=== PATIENT | female | born 1950 | race Caucasian/White ===

== ENCOUNTER 2017-03-11 12:20 | Day surgery (SDC) | payer MEDICARE ==
[~2017-03-11] VITALS: Ht 170.2 cm; Wt 81.7 kg
[~2017-03-11 12:20] MED LIST: 0.9% Sodium Chloride 1,000 ML IV SCH; ACET-2605 PO; ASCO-294 PO; GELA650C3 PO; HYDR25TA4 PO; IBUP200C PO; LOSA50TA37 PO; MULT-1018 PO; PANT20T PO; RNT300T PO; Sodium Chloride LOK Flush 10 mL Syringe IV PRN; fentaNYL-PF 50 mCg/mL 2 mL Inj IVPUSH PRN
[2017-03-11] MEDS ORDERED: OMEG-38 PO (13:01)
[2017-03-11 13:15] VITALS: PULSE 69; O2SAT 98
[2017-03-11 13:16] VITALS: BP 166/88; PULSE 68
[2017-03-11 14:37] VITALS: BP 168/80; PULSE 61; RESP 16; O2SAT 97
[2017-03-11 14:47] VITALS: BP 164/80; PULSE 54; RESP 16; O2SAT 99
[2017-03-11 14:57] VITALS: BP 175/65; PULSE 54; RESP 16; O2SAT 100
--- NOTE | 2017-03-11 15:09 | ENDO ---
[address] [address] ENDOSCOPY PROCEDURE PATIENT: BRANT MANCILLA : 1950 MR#: [id number] ADMIT: 03/11/2017 JOB ID: [id number] DATE: 03/11/2017 PROCEDURE: Esophagogastroduodenoscopy. INDICATIONS: Nausea, vomiting. Patient's ASA classification is II. Mallampati score is II. MEDICATIONS: Versed 7 mg, fentanyl 100 mcg. INSTRUMENT USED: GIF-H190. PROCEDURE DETAILS: After informed consent was obtained, the patient was brought to the GI suite, where she was placed on oxygen via nasal cannula and monitored with continuous pulse oximeter, telemetry, and blood pressure monitoring. A time-out was performed. Then, she was placed in the left lateral decubitus position. A bite block was placed. EGD scope was inserted through the bite block and advanced to the proximal gastric body where we encountered a large amount of liquid. Approximately 1 L of liquid was suctioned, and following that there was semi-solid food debris which we were unable to clear despite irrigation and suctioning. We then were able to visualize the distal gastric body and then able to advance the scope to the antrum where we encountered a large ulcer measuring approximately 2 cm and deforming the pylorus. We were unable to advance the scope into the duodenal bulb. At this point, biopsies were taken of the ulcer. Retroflexion was performed which revealed poor views secondary to semi-solid debris and fluid in the fundus. The scope was then withdrawn. Procedure was completed. IMPRESSION: Antral ulcer involving the pylorus, causing gastric outlet obstruction. RECOMMENDATIONS: 1. CT abdomen with IV contrast. 2. Surgical consultation. 3. Clear liquid diet. 4. Omeprazole 40 mg p.o. b.i.d. COMPLICATIONS: None. ESTIMATED BLOOD LOSS: Less than 5 mL.
--- NOTE | 2017-03-15 15:15 | PATH ---
SURGICAL PATHOLOGY Attending Physician:Terrence Malloy CASE STATUS: Signed Out PATIENT NAME: BRANT MANCILLA PID: [id number] : 1950 DATE COLLECTED:03/11/2017 00:00 SPECIMEN: Gastric, Biopsy CLINICAL HISTORY: 1). ANTRAL ULCER BIOPSY, TEST FOR H.PYLORI FINAL DIAGNOSIS: 1.GASTRIC ANTRAL ULCER, BIOPSY: GASTRIC ANTRUM WITH CHRONIC ACTIVE GASTRITIS, MUCOSAL ULCERATION, AND INTESTINAL METAPLASIA. Negative for Helicobacter organisms. No evidence of dysplasia or malignancy. ICD10 K29.70 GROSS DESCRIPTION: The specimen is received in formalin, labeled with the patient's name, sublabeled as antral ulcer, and consists of multiple fragments of mullen-white, glistening, semi-translucent tissue (0.5 x 0.3 x 0.1 cm in aggregate. Section code: (A) tissue. Specimen entirely submitted. ([id number]) MICRO DESCRIPTION: 1. The lamina propria of the gastric antrum is expanded by numerous acute and chronic inflammatory cells. An immunostain for Helicobacter organisms is done because of the acute inflammation and is negative. This test was developed and its performance characteristics determined by [facility]. It has not been cleared or approved by the U. S. Food and Drug Administration. The FDA has determined that such clearance or approval is not necessary. This test is used for clinical purposes. It should not be regarded as investigational or for research. ICD-9 CODES: CPT CODES: 1: 19507, 59181 Electronically Signed Out Tex Camacho MD [facility] Pathology [facility] [address], [place] [address] Technical component performed at [facility], [address], [place], [address]
== END 2017-03-11 23:59 | disposition home or self-care (01) ==
LOC: END 12:20
PROVIDERS: ATTEND Internal Medicine Gastroenterology
DX: K25.9 Gastric ulcer, unspecified as acute or chronic, without hemorrhage or perforation (principal); K31.1 Adult hypertrophic pyloric stenosis; K29.50 Unspecified chronic gastritis without bleeding; R11.2 Nausea with vomiting, unspecified; R10.13 Epigastric pain; I10 Essential (primary) hypertension; R63.4 Abnormal weight loss; Z68.29 Body mass index [BMI] 29.0-29.9, adult
CPT/HCPCS: 43239; 88305; 88342; 99153; G0500; J2250; J3010; J7030

== ENCOUNTER 2017-04-26 10:29 | Inpatient (IN) | payer MEDICARE ==
[~2017-04-26] VITALS: Ht 170.2 cm; Wt 79.6 kg
[2017-04-26] MEDS: Lactated Ringer's 1,000 ML IV SCH ×6 (05:00→21:37)
[~2017-04-26 10:29] MED LIST changes: -0.9% Sodium Chloride 1,000 ML IV SCH; +Cefotetan 2,000 mg/100 mL D5W IV ONE; +Cefotetan Inj 2,000 MG in IV Premix 1 EACH IV ONE; -GELA650C3 PO; +GELA650C4 PO; -IBUP200C PO; -RNT300T PO; -Sodium Chloride LOK Flush 10 mL Syringe IV PRN; +TRAM50TA2 PO; -fentaNYL-PF 50 mCg/mL 2 mL Inj IVPUSH PRN
[2017-04-26 11:02] VITALS: BP 142/76; PULSE 86; RESP 16; O2SAT 97
[2017-04-26 13:05] LABS: BASOPHILS % (AUTO) 0.5 % (0-3); EOSINOPHILS % (AUTO) 1.3 % (0-5); MONOCYTES % (AUTO) 5.4 % (4-12); Mean Corpuscular Hemoglobin 30.3 pg (27.0-35.0); Mean Corpuscular Volume 91.5 fL (81-100); NEUTROPHILS % (AUTO) 74.3 % (40-74); Platelet Count 171 bil/L (150-400)
[2017-04-26] MEDS ORDERED: Atropine 1 mg/mL Inj IVPUSH PRN (14:15)
[2017-04-26] MEDS ORDERED: fentaNYL-PF 50 mCg/mL 2 mL Inj IVPUSH PRN ×2 (14:15→14:30)
[2017-04-26] MEDS ORDERED: Ondansetron 2 mg/mL 2 mL Inj IVPUSH PRN ×2 (14:15→14:30)
[2017-04-26] MEDS ORDERED: EPHEDrine Sulfate 50 mg/mL Inj IV PRN (14:15)
[2017-04-26] MEDS ORDERED: fentaNYL 2 mCg/mL-Bupiv 0.125% 100 ML in IV Premix 1 EACH EPIDURAL SCH (14:15)
[2017-04-26] MEDS ORDERED: fentaNYL 2 mCg/mL-Bupivicaine 0.125% 100 mL Premix EPIDURAL ONE (14:27)
[2017-04-26] MEDS ORDERED: Lactated Ringer's 500 ML IV PRN (14:28)
[2017-04-26] MEDS ORDERED: MetoCLOpramide 5 mg/mL 2 mL Inj IVPUSH PRN (14:30)
[2017-04-26] MEDS ORDERED: Labetalol 5 mg/mL 4 mL Inj IV PRN (14:30)
[2017-04-26] MEDS ORDERED: EPHEDrine Sulfate 50 mg/mL Inj IVPUSH PRN (14:30)
[2017-04-26] MEDS ORDERED: HYDROmorphone 1 mg/mL Inj IVPUSH PRN (14:30)
[2017-04-26] MEDS ORDERED: Atropine 0.4 mg/mL Inj IVPUSH PRN (14:30)
[2017-04-26] MEDS ORDERED: Phenylephrine 10,000 mCg/mL Inj IVPUSH PRN (14:30)
--- NOTE | 2017-04-26 15:07 | PCM.HPANE ---
Patient Data Surgeon Admitting Provider: Attending Provider:Hever Inman MD Primary Care Physician:David Calloway MD Other Provider:Ole Escoto Anesthesia Reason for Visit Gastric Outlet Obstruction Ht/WT & BMI Height (Feet): 5 Height (Inches): 7.00 Weight (Kilograms): 82.8 Body Mass Index 28.00 Allergies Coded Allergies: lisinopril (Verified Adverse Reaction, Intermediate, Cough, 04/21/17) cough Past Anesthesia History Anesthesia History: Denies:: Abnormal Airway, Anesthesia Reactions, Difficult Intubation, Fam Anesthesia Reaction, Fam Malignant Hypertherm, Malignant Hyperthermia Diabetes History Hx Diabetes?: No MRSA MRSA: No Medications Hypertension Medication: Yes (Losartan) Home Meds Incl Beta Ria: No Reported Medications Tramadol 50 Mg Omtlnc59 Mg PO Q4H PRN For Pain Ref 0 04/21/17 Acetaminophen/Diphenhydramine (Tylenol Pm Ex-Strength Caplet)500 Mg-25 Mg Tablet1 Each PO 04/21/17 Ascorbate Calcium (Vitamin C)500 Mg Sikntz011 Mg PO DAILY 03/10/[address] (Protonix)20 Mg Pjpfwn06 Mg PO BID Ref 0 03/10/17 Multivitamin (Multi Vitamin Daily)1 Each Tablet1 Each PO DAILY 30 Days Ref 0 03/10/17 Hydrochlorothiazide 25 Mg Fhgsxg53 Mg PO DAILY 30 Days Ref 0 03/10/17 Gelatin 650 Mg Vfgrphf551 Mg PO DAILY 03/10/17 Losartan Potassium 50 Mg Ztaaaz59 Mg PO DAILY 06/18/14 Discontinued Reported Medications Kyle-3/Dha/Epa/Fish Oil (Fish Oil 1,000 mg Softgel)1 Each Capsule1 Each PO DAILY 03/11/17 Ibuprofen 200 Mg Kclxgjn217 Mg PO QID PRN For Pain Ref 0 03/10/17 Last Time Dose Received meds held today. Pt. states leading up to the surgery she was only taking HCTZ and losartan as Rx meds History History of ENT Problems?: Yes HEENT History: Positive for:: Cataracts (early) Denies:: Abnormal Airway Difficult Intubation Dysphagia Glaucoma Hearing Problem Sinus Problem TMJ Denture Type: None Teeth Condition: Within Normal Limits Hx of Heart Problems?: Yes Cardiovascular History: Positive for:: Heart Murmur (Diastolic murmur) Hypertension Denies:: Abdominal Aortic Aneurism Atrial Fibrillation Cardiac Surgery Chest Pain Congestive Heart Failure Coronary Artery Disease Edema Irregular Heartbeat Pacemaker Peripheral Vascular Rheumatic Fever Thrombophlebitis Valvular Heart Disease Other History/Comments No CP; greater than 4 mets Hx of Respiratory Problem?: No Respiratory History: Positive for:: Pneumonia (1964) Denies:: Asthma COPD Chest Surgery Cough Dyspnea Emphysema Hemoptysis Pulmonary Embolism Tuberculosis Use of C-PAP Machine Use of Inhalers / NEBS Hx Neurologic Problems?: No Neurological History: Denies:: Alzheimer's Disease CVA Dementia Dizziness Headaches Parkinson's Disease Seizures TIA Hx of GI Problems?: Yes (gastric outlet obstruction) Hx of Problems?: No Female Hx: Positive for:: Problems with Breasts? (benign lump lt breast) Denies:: Currently Skin History: Denies:: History Skin Disorders? Pressure Ulcers Hx Musculoskeletal Problems?: No Musculoskeletal History: Positive for:: Joint Replacement (R KNEE, lower back) Osteoarthritis Denies:: Back Injury Degenerative Joint Fibromyalgia Musculoskeletal Trauma Myasthenia Gravis Rheumatoid Arthritis Systemic Lupus Hx of Psycho/Social Problems?: No Psycho Social History: Denies:: Anxiety Hx Depression Hx Surgeries?: Yes (R TOTAL KNEE, T&A, R FOOT) Hx Any Other Health Problems?: Yes Other History: Positive for:: Hospitalization (2007 knee surgery) Denies:: Cancer Endocrine Disease Thyroid Disease History Blood Transfusions: Positive for:: Accept Blood Products? Denies:: Blood Transfusions Hx Diabetes: No Hx Alcohol Use: NoHx Substance Use: No Smoking Status: Never Smoker Stop/Bang S-Snoring: Do You Snore Loudly: No T-Tired: feel tired, fatigued: No O-Obsered: Observed not breath: No P-Blood Pressure: treated: Yes B- Body Mass Index > 35 kg/m2: No A- Age over 50: Yes N- Neck Large Circumference: No G- Gender Male: No HARSHIL Total Score: 2 Risk Assessment Category Category 1A: Patient has history of documented sleep apnea, and HAS NOT received any narcotic, sedative or anesthesia administration during this stay. Category 1B: Patient has history of documented sleep apnea, and HAS received any narcotic , sedative or anesthesia administration during this stay Category 2: Patient has SUSPECTED Obstructive Sleep Apnea, and HAS received any narcotic , sedative or anesthesia administration during this stay. Category 3: Patient has SUSPECTED Obstructive Sleep Apnea and HAS NOT received narcotic, sedative or anesthesia administration during this stay. Category 4: Outpatient in Procedural Areas with known sleep apnea or who screen positive for High Risk via the STOP/BANG questionnaire. Exam Exam Vital Signs Vital Signs Date Time Temp Pulse Resp B/P Pulse Ox O2 Delivery O2 Flow Rate FiO2 04/26/17 11:02 36.2 86 16 142/76 97 Room Air General Appearance: Alert, Oriented X3 HEENT/AIRWAY: MP 1, Neck Movement (FROM) Lungs: Clear to Auscultation, Clear to Percussion Heart: Exam Unremarkable, Regular Rate/Rhythm Meds/Labs/Diagnostics Admission Meds Current Medications Lactated Ringer's (Lr) 1,000 ml @ 120 mls/hr Q8H20M IV Last administered on t 05:32; Start 04/26/17 at 05:00; Stop 04/26/17 at 13:19 Plan Impression Patient chart reviewed, patient interviewed and anesthestic plan with risks, benefits, and alternatives discussed, and informed consent obtained. ASA Physical Status: ASA2 Mod Systemic Disease Anesthetic Plan: GA, Epidural (for post-op pain control) Bene/Risks/Altern/Consents: Yes HP Complete Prior to Induction: Yes Other I met pt. prior to TEP placement and consented her for GA. Dr. Inman requested a thoracic epidural for post-op pain control. Dr. Villatoro was the float and consented the patient to a TEP and placed it in the pre-op area. Davis Sharpe MD Apr 26, 2017 12:50
[2017-04-26] MEDS: Sodium Chloride LOK Flush 10 mL Syringe IVFLUSH SCH (16:30)
[2017-04-26 17:17] LABS: APPEARANCE,URINE CLEAR (CLEAR,HAZY); COLOR,URINE STRAW (YELLOW); OCCULT BLOOD,URINE NEGATIVE (NEGATIVE); UROBILINOGEN,URINE NORMAL (NORMAL)
[2017-04-26] MEDS ORDERED: Cefotetan Inj 2,000 MG in IV Premix 1 EACH IV ONE (19:15)
[2017-04-26] MEDS ORDERED: Insulin Human REGular-Omnicell 100 Unit/mL ONE (21:44)
[2017-04-26 23:20] LABS: Mean Corpuscular Hemoglobin 30.3 pg (27.0-35.0); Mean Corpuscular Volume 91.5 fL (81-100)
[2017-04-27] VITALS (24 sets, daily range): BP systolic 100–136; BP diastolic 49–74; PULSE 68–101; RESP 16–22; O2SAT 93–100
[2017-04-27] MEDS ORDERED: Cefotetan Inj 2,000 MG in IV Premix 1 EACH IV ONE (01:20)
[2017-04-27] MEDS ORDERED: Fluconazole Inj 400 MG in IV Premix 1 EACH IV ONE (01:22)
[2017-04-27] MEDS ORDERED: MetoCLOpramide 5 mg/mL 2 mL Inj IVPUSH PRN (02:35)
[2017-04-27] MEDS ORDERED: Ondansetron 2 mg/mL 2 mL Inj IVPUSH PRN (02:35)
--- NOTE | 2017-04-27 02:52 | PCM.SURGPO ---
Immediate Operative Note Date of Surgery: Apr 27, 2017 Pre Operative Diagnosis Gastric Outlet Obstruction Post Operative Diagnosis Gastric Outlet & Duodenal obstruction from chronic ulcer disease Procedure Distal Gastrectomy with Gastroduodenostomy (Bilroth I reconstruction) Common bileduct cannulation and closure of choledochotomy Omental flap Surgeon and Parts Counter Specialist Surgeon: Hever Inman MD Assistants: Mitzy Donahue MD; Brijesh Rodrigues, PAC, BRANDO Glass, Eric Hill MS3 Findings Gastric outlet & Duodenul obstruction from chronic perforated ulceration Complications There were no periprocedural complications identified. Surgical Specimen Removed: Yes Specimen sent to Pathology: Yes Anesthetic Administered: GA Grafts, Implants: None Output, Estimated Blood Loss: 50 Blood Admin during surgery: No Attending Statement Manager Drug listed was medically necessary for the successful completion of the operation Hever Inman MD Apr 27, 2017 02:52
--- NOTE | 2017-04-27 03:01 | PCM.ANEP1 ---
Post Anesthesia PACU Phase 1 Assessment Date of Service: Apr 27, 2017 Vital Signs Vital Signs Date Time Temp Pulse Resp B/P Pulse Ox O2 Delivery O2 Flow Rate FiO2 04/27/17 02:55 92 16 100/63 96 Room Air 04/27/17 02:50 101 20 117/58 98 Room Air 04/27/17 02:45 37.7 93 16 129/65 96 Room Air Anesthetic Administered: GA, Epidural Level of Alertness: Awake, talking KAPOOR's with Equal Strength: Yes Pain: Yes Pain Scale Score: 6 Nausea or Vomiting: No CV Function & Hydration Stable: Yes Airway Device: Oxygen Delivery: Room Air Lungs: Clear to Percussion Dermatome Level: T8 (Costal Margin) Summary Prolonged case lasting > 12 hours. Patient hemodynamically stable throughout with good ventilation. Intra-operative labs were unremarkable. Decision with surgeon to proceed with extubation and post-operative care in PCC. Patient with pain localized to MARI drain site on right lower abdomen, appears to not be covered by epidural. Not endorsing pain at incision. PACU Phase 2 Assessment Complications: No Follow up Care: Yes (daily post-operative epidural follow-up) Patient Instructions Provided: N/A Jonathan Guzman MD Apr 27, 2017 03:01
[2017-04-27] MEDS ORDERED: fentaNYL-PF 50 mCg/mL 2 mL Inj ONE (04:16)
--- NOTE | 2017-04-27 04:24 | OP ---
[address] [address] OPERATIVE REPORT PATIENT: IRISH DE LA CRUZ : 1950 MR#: [id number] ADMIT: 04/26/2017 JOB ID: [id number] DATE OF SURGERY: 04/26/2017 and 04/27/2017 PREOPERATIVE DIAGNOSIS(ES): Gastric outlet obstruction. POSTOPERATIVE DIAGNOSIS(ES): Gastric and duodenal obstruction from chronically perforated ulcers. PROCEDURE PERFORMED: 1. Distal gastrectomy with gastroduodenostomy (Billroth I reconstruction). 2. Common bile duct cannulation with closure of choledochotomy 3. Omental flap. 4. Excisional biopsy of a retropancreatic lymph node 5. Primary repair of umbilical hernia 6. Intraoperative esophagogastroduodenoscopy by Dr. Boyd. SURGEON: Hever Inman MD CLAIM REP: 1. Mitzy Donahue MD 2. Brijesh Rodrigues PA-C 3. Rian Berg PA-C 4. Eric Hill MS3 ESTIMATED BLOOD LOSS: 50 mL. COMPLICATIONS: None. CONDITION OF THE PATIENT: Stable. INDICATIONS: Irish De La Cruz is a 67-year-old lady who started developing epigastric discomfort after eating big meals over a year ago. She also has been throwing up undigested food after a few hours. She initially tried some Omeprazole and it seemed to help, but not after the first few months. She had an upper GI and was sent for consultation with Gastroenterology. Dr. Boyd performed an upper endoscopy. He saw an ulcer in the antrum that he biopsied, but he was not able to get through the pylorus. The patient then had a CT scan and we noted her to have an absent gallbladder with no evidence of cholestasis. There are relatively prominent bile ducts, but normal liver function tests. Based on the imaging, I was not certain if we had an obstruction at the pylorus or in the duodenum. So, we discussed distal gastrectomy with reconstruction or the potential for having to deal with a duodenal obstruction depending on intraoperative findings. After discussing the risks, benefits and alternatives, the patient is here today to have the operation. PROCEDURE DETAILS: The patient was placed in a supine position after having an epidural catheter placed. Then, she had general anesthesia induced and a Katz catheter and NG tube were placed. The abdomen was prepped and draped in the usual sterile fashion. Surgical time-out was undertaken using safety checklist and all were in agreement. I began by making an upper midline incision extending from the xiphoid down to the umbilicus. I entered the abdomen safely and then took down the falciform ligament and placed a large wound protector. I then used a Bookwalter retractor for exposure and identified the obviously dilated stomach. I was immediately impressed by the hard inflammation at the level of the pylorus. So, we mobilized the right colon and kocherized the duodenum. I noticed a lymph node behind the pancreas near the third portion of the duodenum was enlarged and removed it, carefully dissecting it off the pancreas and sent it for frozen section. While we continued to expose the duodenum, it appeared to be initially that the only area of the problem was near the pylorus. At that point, I had Dr. Boyd come in and do an endoscopy. He was able to go past the pylorus after my mobilization, but after getting into the duodenal bulb, he felt that there was an extremely small opening to go any further. After repeated tries, he could not get into the second portion of the duodenum. Eventually, we were able to briefly enter the second portion of the duodenum with an endoscope, but that did not last. At this point, based on the endoscopic appearance and our intraoperative findings suggestive of scarring and stricture right at the pylorus, I decided to proceed with a distal gastrectomy with reconstruction. I then divided the right gastroepiploic vessels and right gastric vessels and encircled the distal stomach circumferentially by taking down the adhesions of the stomach to the pancreas. I encountered dense scarring off the superior aspect of the duodenal bulb to the hilar structures of the liver. We actually unroofed a chronic contained peroration on the posterio-superior aspect of the duodenal bulb. I tried to get on to the duodenum distal to this area of inflammation to be able to mobilize it, but this part of the operation was extremely challenging given the intense scarring. We went through tedious dissection this junction of the first & second parts of the duodenum from the paripancreatic adipose issue. After attempting to mobilize this ulcerated first portion of the duodenum from the hilum unsuccessfully, we eventually ended up mobilizing the pylorus and the part of the duodenal bulb proximal to this area of scarring separately. We lifted that off of the area of inflammation. I then focused my attention on the rest of the duodenum, which was again extremely stuck to the pancreas and the structures posteriorly going to the liver. I identified the common bile duct and, as I was mobilizing the duodenum further, I eventually decided to cannulate the common bile duct with a feeding tube to help me identify the ampulla. Once I did that, I made sure I had enough duodenum mobilized to be able to perform an anastomosis without impinging on the ampulla. At that point, I left the bile duct and ampulla cannulated and went ahead and divided the stomach proximally with a 60/ 5.5mm TA stapler. I oversewed the superior aspect of the staple line and then performed a two-layer, hand-sewn gastroduodenostomy, that is Billroth I reconstruction, between the lower aspect of the stomach and the duodenum. I continued to check to make sure I had not impinged upon the ampulla or the bile duct by periodically moving the feeding tube. At the end of this anastomosis, I removed the feeding tube from the choledochotomy and tied down the horizontal mattress 6-0 PDS suture I placed around the choledochotomy with a good seal. After that, I mobilized some omentum off the transverse colon and created a flap and anchored it in the right upper quadrant covering the gastroduodenostomy. We then placed a #19 MARI drain going through the right lateral abdomen to lay in the right upper quadrant. After making sure the instrument counts were correct, we thoroughly irrigated the abdomen and suctioned all fluid. We ensured good hemostasis and closed the fascia with running 0 PDS suture. We repaired an umbilical hernia with the fascial closure and reapproximated the skin, again after irrigation, with 4-0 Monocryl. Steri-Strips and sterile dressing were applied. The patient was recovered from anesthesia and was taken to the recovery room in stable condition. EXPLANATION FOR MODIFIER 22: Because of the intense inflammation from the chronically perforated ulcer down to the hilar structures of the liver and the pancreas, the operative time more than doubled, prompting us to request higher reimbursement. JUAN
[2017-04-27] MEDS: Lactated Ringer's 1,000 ML IV SCH (04:48)
[2017-04-27 07:19] LABS: BASOPHILS % (AUTO) 0.1 % (0-3); EOSINOPHILS % (AUTO) 0.1 % (0-5); MONOCYTES % (AUTO) 6.8 % (4-12); Mean Corpuscular Hemoglobin 30.5 pg (27.0-35.0); Mean Corpuscular Volume 91.8 fL (81-100); NEUTROPHILS % (AUTO) 86.2 % (40-74); Platelet Count 176 bil/L (150-400)
--- NOTE | 2017-04-27 07:43 | NUR ---
Admit Note pt arrived to [facility] around 03:51 from PACU. pt is A&Ox3, drowsy but easily arousable to voice. pt incision site dressing is CDI, no direct observation. MARI drain has observable sero-sang fluid. NG tube to continuous suction per MD orders. SCDs on. Katz draining to gravity, ale in color. IVF infusing, site is patent. family was in room when pt arrived and left to home soon after. pt belongings at bedside. pt informed of her ability to use PCEA, button placed in her hand. call light placed within reach. hourly rounding in effect.
[2017-04-27] MEDS: Pantoprazole 4 mg/mL 10 mL Inj IVPUSH SCH ×2 (08:11→18:44)
[2017-04-27] MEDS: fentaNYL 2 mCg/mL-Bupiv 0.125% 100 ML in IV Premix 1 EACH EPIDURAL SCH ×2 (08:29→16:55)
[2017-04-27] MEDS: Sodium Chloride LOK Flush 10 mL Syringe IVFLUSH SCH ×3 (08:30→16:56)
[2017-04-27] MEDS ORDERED: Fluconazole Inj 400 MG in IV Premix 1 EACH IV SCH (08:30)
--- NOTE | 2017-04-27 09:18 | NUR ---
Social Work-initial assessment: Data:See initial assessment. Pt is a 67 y/o female who was admitted on 04/27/17 for gastric outlet obstruction per H&P. Pt's insurance is [facility] an PCP is David Calloway Md. EMR Reviewed. SW met with pt at bedside, SW role explained. Pt is alert and oriented x3. Pt resides at home alone where she remains independent with ADLS. Pt drives and does not use any DME. Pt has no HH or SNF history. Pt has no correction care insurance or VA benefits. SW discussed DPOA/ advanced directive, pt confirms this has been completed, SW encouraged a copy to be brought in. Pt has a supportive friend Rian [phone] who will provide transport home.SW provided pt with discharge planning checklist and encouraged pt to call with any questions, Phone number placed on white board. Pt currently has an NG Tube in place. SW to follow for needs. Assessment:pt who is independent at baseline. Plan:Anticipate pt to discharge home when medically stable. SW to follow for needs. LORA Tobin Addendum: 04/27/17 at 0921 by DAVY AKBAR Amended: Links added.
--- NOTE | 2017-04-27 09:56 | DRSVH ---
PROCEDURE: X-RAY ABDOMEN, ONE VIEW ([id number]) INDICATIONS: 67 year-old female with nasogastric tube placement. TECHNIQUE: One view of the abdomen acquired. COMPARISON: None. FINDINGS: Surgical changes and devices: Esophagogastric tube is present, with tip in the gastric body. Scattere d mid abdominal surgical clips are present. Bowel: Bowel gas pattern is normal. Soft tissues: No suspicious abdominal calcifications. Visualized solid organ contours appear normal in size. Bones: No suspicious bony lesions. There is lumbar spine disc degeneration. IMPRESSION: Tip of esophagogastric tube is in expected position. Dictated by: Guillermo Ruvalcaba M.D. on 04/27/2017 at 9:54 Approved by: Guillermo Ruvalcaba M.D. on 04/27/2017 at 9:55
[2017-04-27] MEDS: Acetaminophen IV 1,000 MG in IV Premix 1 EACH IV SCH ×3 (10:09→21:44)
--- NOTE | 2017-04-27 10:45 | NUR ---
PCAE PCAE rate changed by Anesthesiologist to 10 mL/hr continuous from 8 mL/Hr.
[2017-04-27] MEDS: Cefotetan Inj 2,000 MG in IV Premix 1 EACH IV SCH (12:12)
--- NOTE | 2017-04-27 13:42 | PROG NOTE ---
[address] [address] PROGRESS NOTE PATIENT: BRANT MANCILLA : 1950 MR#: [id number] ADMIT: 04/27/2017 JOB ID: [id number] DATE: 04/27/2017 The patient presents post gastrectomy. She was seen at 10 a.m., 8 hours after surgery ended. The patient is awake and alert in bed with some pain. Easily able to move her legs. Catheter site was intact. The patient has not yet been out of bed appropriately per discussion with Dr. Inman. The patient complained that there was perhaps too much pain and to evaluate the function of the epidural a 6 mL 0.25% bupivacaine bolus was administered. The patient had good result in pain relief from this. The epidural infusion rate was changed from 8 to 10 mL. The patient is happy, relaxed, smiling in bed. She will be ambulated perhaps later this afternoon.
[2017-04-27] MEDS ORDERED: 0.9% Sodium Chloride 250 ML ONE (15:21)
[2017-04-27] MEDS: D5 0.45% NaCl + KCl 20 mEq/L 1,000 ML IV SCH (16:54)
[2017-04-27] MEDS: Fluconazole Inj 200 MG in IV Premix 1 EACH IV SCH (22:19)
--- NOTE | 2017-04-27 23:22 | PCM.PNSURG ---
Subjective Date of Service: Apr 28, 2017 Visit Information: Gastric Outlet Obstruction s/p Distal Gastrectomy with Gastroduodenostomy Post-Op Day # 0 Date of Admission: Apr 27, 2017 at 04:15 Hospital Day # 2 Subjective: Pain improved once epidural rate increased Objective Vital Sign- Last 8 Hours Date Time Temp Pulse Resp B/P Pulse Ox O2 Delivery O2 Flow Rate FiO2 04/27/17 21:49 18 96 04/27/17 21:49 Supplement Oxygen 04/27/17 20:54 36.2 68 18 128/73 96 Nasal Cannula 2.00 04/27/17 18:00 18 100 04/27/17 16:00 18 100 04/27/17 15:40 76 100 Nasal Cannula 2.00 04/27/17 15:30 Supplement Oxygen Intake and Output- Last 8 Hour 04/27/17 Cumulative From/Thru 07:00 04/21/17 12:10 - 04/27/17 06:30 Intake Total 438 ml 2588 ml Output Total 210 ml 1055 ml Balance 228 ml 1533 ml Intake Oral 0 ml 0 ml IV Total 438 ml 2588 ml Output Urine Total 150 ml 900 ml Gastric Drainage Total 0 ml 0 ml Drainage Total 10 ml 55 ml Estimated Blood Loss 50 ml 100 ml # Bowel Movements 0 0 Abdomen: Soft, Other (MARI serosanguinous, Dressing dry) Result Diagram: 04/27/1771104/27/17711 Diagnostics: NG in he body of the stomach Assessment & Plan Impression Doing well Problems: Plan Continue NPO, NG o suction, MARI to bulb Epidural for pain control Continue IV protonix, anibiotics Ambulate Incentive Spirometry Will get upper GI with gastrograffin prior to initiiating diet Hever Inman MD Apr 27, 2017 23:21
[2017-04-28] VITALS (16 sets, daily range): BP systolic 133–148; BP diastolic 64–82; PULSE 72–87; RESP 14–19; O2SAT 96–99
[2017-04-28] MEDS: fentaNYL 2 mCg/mL-Bupiv 0.125% 100 ML in IV Premix 1 EACH EPIDURAL SCH ×5 (00:04→23:10)
[2017-04-28] MEDS: Cefotetan Inj 2,000 MG in IV Premix 1 EACH IV SCH ×2 (00:36→12:27)
[2017-04-28] MEDS: Acetaminophen IV 1,000 MG in IV Premix 1 EACH IV SCH ×4 (02:30→23:18)
[2017-04-28] MEDS: fentaNYL-PF 50 mCg/mL 2 mL Inj IVPUSH PRN ×3 (03:15→14:53)
[2017-04-28] MEDS: D5 0.45% NaCl + KCl 20 mEq/L 1,000 ML IV SCH ×3 (03:34→22:51)
[2017-04-28 07:13] LABS: BASOPHILS % (AUTO) 0.1 % (0-3); EOSINOPHILS % (AUTO) 0 % (0-5); MONOCYTES % (AUTO) 6.9 % (4-12); Mean Corpuscular Hemoglobin 30.9 pg (27.0-35.0); Mean Corpuscular Volume 93.5 fL (81-100); NEUTROPHILS % (AUTO) 86.1 % (40-74); Platelet Count 154 bil/L (150-400)
--- NOTE | 2017-04-28 08:27 | NUR ---
NUTRITION ASSESSMENT: ASSESS:67 YO female admitted with gastric and duodenal obstruction from chronically perforated ulcers; status post distal gastrectomy with gastroduodenostomy (Billroth I reconstruction), common bile duct cannulation with closure of choledochotomy, omental flap, excisional biopsy of a retropancreatic lymph node, primary repair of umbilical hernia, intraoperative esophagogastroduodenoscopy, per SCOAP protocol. Pt. remains NPO, pending upper GI with gastrograffin prior to initiating diet. MARI drain output 40 mL yesterday. PMHx:Diastolic murmur, HTN, gastric outlet obstruction. DIET:NPO x 1 D. LABS: Reviewed. Glu 119, Alb 3.2, Amylase 10. MEDICATIONS: Reviewed. NUTRITION FOCUSED PHYSICAL ASSESSMENT: GI symptoms / stool: No stool reported.Italo: 13. Skin Integrity: No issues reported. ANTHROPOMETRICS: Current Wt: 82.2 kgBMI: 28.0 kg/m2. IBW: 61.4 kg (134.0% IBW) ESTIMATED NEEDS (GI SURGERY): Calories: 2055 - 2466 kcal (25 - 30 kcal / kg BW) Protein: 99 - 123 g protein (1.2 - 1.5 g / kg BW) NUTRITION DIAGNOSIS: 1) Increased nutrient needs related to complex GI surgery, as evidenced by MD request for additional reimbursement. 2) Inadequate oral intake related to inability to consume sufficient energy, as evidenced by ongoing NPO status, pending gastrograffin study. INTERVENTION: 1) Once diet advanced to full liquids, will add Impact Advanced Recovery supplement to all trays. MONITOR/EVALUATE: Diet advance / tolerance, PO intake, labs, GI/nutrition status. Follow up per high nutrition risk guidelines.
--- NOTE | 2017-04-28 09:05 | PROG NOTE ---
[address] [address] PROGRESS NOTE PATIENT: BRANT MANCILLA : 1950 MR#: [id number] ADMIT: 04/27/2017 JOB ID: [id number] DATE: 04/28/2017 This patient was consulted in her floor bed in a semi-lithotomy position at 8:30 a.m. on April 28, 2017. This is postop day two following a gastrectomy with Billroth anastomosis. The patient was consulted with the surgeon at the bedside so conference was conveniently undertaken related to patient ambulation and his postop surgical progress goals. My current plan is that the patient will have a Gastrografin analysis of the anastomosis to determine patency and to rule out potential leak from the anastomosis prior to advancing oral intake. The patient is otherwise meeting her postoperative goals with plan to discontinue the Katz today and attempt ambulation under the care of physical therapy. The patient's pain needs were assessed, demonstrating that the patient's pain was reasonably controlled with a baseline of 4/10. The patient acknowledges improvement with the bolus function of the epidural pump, but has required the occasional fentanyl IV dosing for breakthrough pain, particularly with coughing or positional changes. Discussion was undertaken with the patient describing expected outcome from thoracic epidural post gastrectomy and that 4/10 baseline pain seems a reasonable expectation of the epidural at this point. The patient requests improved analgesia with a bolus dose. The pump was reviewed, found to be a bolus dose of 2 mL delivered three times per hour. This volume was increased to 4 mL three times per hour. Currently the pump settings allow for 10 mL per hour as basal volume with 4 mL boluses every 15 minutes up to three per hour as described. The bolus volume was delivered following readjustment of this pump and the patient described adequate analgesia associated with this volume dosing and was generally satisfied with the epidural therapy. It was emphasized that we are accessible throughout the day and evening should the patient have questions or concerns or need further adjustment of the epidural therapy and the patient voiced understanding in that regard. Questions were answered following discussion and the patient was left resting comfortably in her hospital bed. The site was examined and found to be clean and dry and that the dressing remain intact.
[2017-04-28] MEDS: Pantoprazole 4 mg/mL 10 mL Inj IVPUSH SCH ×2 (09:38→17:13)
--- NOTE | 2017-04-28 11:15 | NUR ---
Transfer to [facility] Report called to Amelia Liu RN In [facility]. Drain and Katz patent. PT denies SOB, reports continual abd/R flank pain at 3-12/27. NG Tube to cont low suction.
--- NOTE | 2017-04-28 11:30 | NUR ---
Arrival to [facility] Pt transferred from [facility] to [facility] at 1120. MARI bulb to suction, casanova patent and draining to gravity, NG tube to low continuous suction. Midline incision with steri-strips is CDI with distal aspect reinforced with gauze known to have old drainage on it. Pain being maintain at 3 or4/10 with Epidural of Fent/Bup at continuous rate of 10mls/hr, 4ml bolus q 20minutes; Epidural site is slightly puffy with some blood in tape, anesthesiologist had recently assessed and adjusted epidural per [facility] RN and patient. Full sensation noted in BLE, SCD's in place and PPP. Pt is on 2L NC and has CPOx.
--- NOTE | 2017-04-28 15:01 | NUR ---
Evaluation completed. Please go to "Notes" then click on "Assessments and Notes" (bottom left corner of screen). Then select appropriate discipline tab on top of screen.
--- NOTE | 2017-04-28 17:00 | DRSVH ---
PROCEDURE: X-RAY UPPER GI WITH GASTROGRAPHIN ([id number]) INDICATIONS: Distal Gastrectomy with Gastroduodenostomy COMPARISON: None. FINDINGS: This patient has had 2 days ago a Billroth I surgery. This test is to evaluate for persist ent edema versus beginning gastric flow into the duodenum. Through the patient's NG tube approximatel y 120 cc of Gastrografin were introduced into the stomach. The patient was placed in a semiupright po sition on the tilt table and rolled to her right side. Although there is a minimal amount of gastric peristalsis no emptying into the duodenum is identified. The patient was taken back to her room and placed in a semisitting position for the next 1.5 hours. A portable film was then obtained. No emptying of contrast into small bowel is identified at this poin t. The patient's nurse was then contacted and will gastric suction was initiated to aspirate the Gastrog rafin from the stomach. IMPRESSION: No emptying from the stomach occurs at this point just 2 days post placement of Billroth I surgical anastomosis. Dictated by: Davis Arias M.D. on 04/28/2017 at 16:56 Approved by: Davis Arias M.D. on 04/28/2017 at 16:59
--- NOTE | 2017-04-28 17:41 | PCM.PNSURG ---
Subjective Date of Service: Apr 28, 2017 Visit Information: Gastric Outlet Obstruction s/p Distal Gastrectomy with Gastroduodenostomy Post-Op Day # 1 Date of Admission: Apr 27, 2017 at 04:15 Hospital Day # 3 Subjective: No Nausea. Minimal NG output Objective Vital Sign- Last 8 Hours Date Time Temp Pulse Resp B/P Pulse Ox O2 Delivery O2 Flow Rate FiO2 04/28/17 16:34 37.7 77 19 133/82 96 Room Air 04/28/17 11:46 37.7 72 19 148/75 96 Room Air 04/28/17 10:29 17 97 Intake and Output- Last 8 Hour 04/28/17 Cumulative From/Thru 07:00 04/21/17 12:10 - 04/28/17 06:46 Intake Total 1500 ml 4088 ml Output Total 915 ml 2550 ml Balance 585 ml 1538 ml Intake Oral 0 ml 0 ml IV Total 1500 ml 4088 ml Output Urine Total 900 ml 2350 ml Gastric Drainage Total 0 ml Drainage Total 15 ml 100 ml Estimated Blood Loss 100 ml # Bowel Movements 0 Result Diagram: 04/28/17 0633 04/28/17 0633 Diagnostics: UGI revealed no emptying of the stomach Assessment & Plan Impression Doing well Problems: Plan Continue NPO, NG o suction, MARI to bulb Epidural for pain control Continue IV protonix, anibiotics Ambulate Incentive Spirometry Repeat AXR in Hever Benavidez MD Apr 28, 2017 17:41
[2017-04-28] MEDS: Fluconazole Inj 200 MG in IV Premix 1 EACH IV SCH (23:21)
[2017-04-28] MEDS ORDERED: 0.9% Sodium Chloride 100 ML ONE (23:24)
[2017-04-29] VITALS (11 sets, daily range): BP systolic 138–172; BP diastolic 62–81; PULSE 79–86; RESP 14–19; O2SAT 96–100
[2017-04-29] MEDS: Cefotetan Inj 2,000 MG in IV Premix 1 EACH IV SCH (01:04)
--- NOTE | 2017-04-29 04:13 | NUR ---
Pain Pt reports pain 2-4/10. Continuous infusion epidural of fen/bup infusing at 10ml/hr with 4ml bolus every 20 minutes. Epidural site with slight puffiness and old blood noted in tape- per A.m. RN, anesthesiologist had manipulated earlier and is aware. Pt has full sensation to all extremities, SCD's in place and PP+. Katz cath to gravity draining ale urine. NG tube to low continuous suction. MARI srain to Rt side of abdomen with very minor amount of sero-sang drainage. Care continues
[2017-04-29] MEDS: Acetaminophen IV 1,000 MG in IV Premix 1 EACH IV SCH ×3 (05:45→17:35)
[2017-04-29] MEDS: fentaNYL 2 mCg/mL-Bupiv 0.125% 100 ML in IV Premix 1 EACH EPIDURAL SCH ×2 (05:45→11:12)
[2017-04-29] MEDS ORDERED: Sodium Chloride LOK Flush 10 mL Syringe IVFLUSH PRN ×2 (06:50)
[2017-04-29] MEDS ORDERED: TPN Per Pharmacist XX ONE (06:50)
[2017-04-29 06:58] LABS: BASOPHILS % (AUTO) 0.2 % (0-3); EOSINOPHILS % (AUTO) 0.5 % (0-5); MONOCYTES % (AUTO) 6.3 % (4-12); Mean Corpuscular Hemoglobin 30.5 pg (27.0-35.0); Mean Corpuscular Volume 93.7 fL (81-100); NEUTROPHILS % (AUTO) 85.7 % (40-74); Platelet Count 138 bil/L (150-400)
--- NOTE | 2017-04-29 09:16 | NUR ---
NUTRITION FOLLOW-UP: ASSESS: 67 YO female admitted with gastric and duodenal obstruction from chronically perforated ulcers; status post distal gastrectomy with gastroduodenostomy (Billroth I reconstruction). She continues to have NGT in place. Pt has been NPO x3 days. TPN has been ordered this am. Wt has been stable during hospital stay. PMHx: Diastolic murmur, HTN, gastric outlet obstruction. DIET: NPO x 3 D. LABS: Reviewed. Collar Fuser .44, glu 112, alb 3.1 MEDICATIONS: Reviewed. GI symptoms / stool: 600ml output 8/10 via NGT, 0 BM Skin Integrity: No issues reported. ANTHROPOMETRICS: Current Wt: 82 kg BMI: 28.3 kg/m2, admit wt 82.8kg IBW: 61.4 kg ESTIMATED NEEDS (GI SURGERY): Calories: 3380-9941 kcal (25 - 30 kcal / kg BW) Protein: 100-125 g protein (1.2 - 1.5 g / kg BW) Fluids: ~2050ml/day (25ml/kg) NUTRITION DIAGNOSIS: 1) Increased nutrient needs related to increased needs for healing as evidence by GI surgery and need for TPN-PERSISTS 2) Inadequate oral intake related to inability to consume sufficient energy, as evidenced by ongoing NPO status-PERSISTS INTERVENTION: 1) TPN to start today. Pharmacy is aware. Recommend start TPN at 180g Dex, 65g AA and 25g lipids to provide 1122kcal and 65g pro (~50% estimated needs). Recommend check Mg and phos 8/12. 2) If TPN tolerated, recommend increase TPN towards goal of 355g Dex, 125g AA and 45g lipids to provide 2157kcal and 125g pro (100% estimated needs). 3) Recommend advance diet when medically appropriate. Will adjust TPN based on PO intake. MONITOR/EVALUATE: TPN start/jake, labs, wt, Diet advance / tolerance, GI/nutrition status. Follow up per high nutrition risk guidelines.
[2017-04-29] MEDS: Pantoprazole 4 mg/mL 10 mL Inj IVPUSH SCH ×2 (09:22→17:25)
--- NOTE | 2017-04-29 10:35 | PCM.PNSURG ---
Subjective Date of Service: Apr 29, 2017 Visit Information: Gastric Outlet Obstruction s/p Distal Gastrectomy with Gastroduodenostomy Post-Op Day # 2 Date of Admission: Apr 27, 2017 at 04:15 Hospital Day # 4 Subjective: Feeling better everyday Objective Vital Sign- Last 8 Hours Date Time Temp Pulse Resp B/P Pulse Ox O2 Delivery O2 Flow Rate FiO2 04/29/17 10:04 36.5 86 19 142/62 96 Room Air 04/29/17 04:55 37.1 80 17 160/81 97 Room Air 04/29/17 03:20 16 99 Intake and Output- Last 8 Hour 04/29/17 Cumulative From/Thru 07:00 04/21/17 12:10 - 04/29/17 06:47 Intake Total 1531 ml 6701 ml Output Total 1502 ml 6162 ml Balance 29 ml 539 ml Intake Oral 0 ml 100 ml IV Total 1531 ml 6601 ml Output Urine Total 1300 ml 5150 ml Gastric Drainage Total 200 ml 800 ml Drainage Total 2 ml 112 ml Estimated Blood Loss 100 ml # Bowel Movements 0 0 Abdomen: Soft, Other (Incision C/D/I) Result Diagram: 04/29/17 0640 04/29/17 0640 Assessment & Plan Impression Doing well, Some delayed gastric emptying Problems: Plan Continue NPO, MARI to bulb Epidural for pain control Continue IV protonix DCed Gianna GODFREY Abx Ambulate Incentive Spirometry PICC, TPN Will Repeat UGI in a few days based on progress Hever Inman MD Apr 29, 2017 10:34
--- NOTE | 2017-04-29 10:51 | PCM.PHAPRO ---
Progress PARENTERAL NUTRITION ORDERS 1 29-Apr-17 Standard Hang Time: 2100 Substrates Total kcal: 1122 AMINO ACIDS 65 g DEXTROSE 180 g Total Volume (mL): 1750 LIPIDS 25 g Sterile Water for Injection mL To Infuse Over (hrs): 24 Total Volume 1750 mL At at a rate of (mL/hr): 73 Additives Sodium Chloride 70 mEq "typical" daily requirements Sodium Acetate 10 mEq Sodium 50-120mEq Potassium Chloride 0 mEq Potassium 60-120mEq Potassium Phosphate 40 mEq Phosphate 20-40mEq Calcium Gluconate mEq Magnesium 8-32mEq Magnesium Sulfate 4 mEq Calcium 9-22mEq Acetate* 80-120mEq Chloride* 80-120mEq Regular Insulin 0 units *Depending on acid-base status Famotidine 0 mg Multivitamins 1 std dose Insulin Regimen Trace Elements 1 std dose none Thiamine 100 mg Regular Low Intensity Subcut Folic Acid 1 mg Regular Medium Intensity Subcut Ascorbic Acid mg Regular High Intensity Subcut Regular Insulin Infusion Other: Special Instructions: To be infused via central line only. For delay or inturruption of TPN contact the pharmacist for alternative replacement solution. Signature Date: Irish De La Cruz [address] [facility] Eric Connelly Pharm.D Apr 29, 2017 10:51
[2017-04-29] MEDS: D5 0.45% NaCl + KCl 20 mEq/L 1,000 ML IV SCH ×2 (11:12→21:33)
--- NOTE | 2017-04-29 13:54 | NUR ---
to PICC suite for PICC placement
--- NOTE | 2017-04-29 14:26 | DRSVH ---
PROCEDURE: X-RAY ABDOMEN, ONE VIEW ([id number]) INDICATIONS: f/u UGI TECHNIQUE: One view of the abdomen acquired. COMPARISON: [facility], CR, XR UPPER GI GASTROGRAFIN, 04/28/2017, 13:46. [facility], CR, XR ABD AP 1VW, 04/27/2017, 8:31. FINDINGS: Surgical changes and devices: Nasogastric tube redemonstrated projecting over the gastric fundus. Bowel: Bowel gas pattern is normal. The free intraperitoneal gas present underlying the right hemid iaphragm similar to prior examination in this patient who is status post recent Billroth l. Soft tissues: No suspicious abdominal calcifications. Visualized solid organ contours appear normal in size. Bones: No suspicious bony lesions. IMPRESSION: 1. No residual contrast media seen within the stomach on today's examination. 2. Stable positioning of nasogastric tube. 3. Right subdiaphragmatic free gas redemonstrated in this patient who is day 3 post Billroth l. Dictated by: Kurtis Jara [facility] Interpreted: Alivia Fairchild MD on 04/29/2017 at 9:44 Approved by: Alivia Fairchild M.D. on 04/29/2017 at 14:25
--- NOTE | 2017-04-29 15:35 | DRSVH ---
PROCEDURE: X-RAY PICC LINE PLACEMENT BY NURSE ([id number]) INDICATIONS: TPN COMPARISON: None. FINDINGS: PICC was placed by the intravenous therapy team from the right side. Fluoroscopic spot fi lm demonstrates tip projected over the lower SVC. IMPRESSION: Tip of PICC projected over the lower SVC . Dictated by: Kurtis VILLAFUERTE Interpreted: Ramiro Marshall MD on 04/29/2017 at 14:23 Approved by: Ramiro Marshall M.D. on 04/29/2017 at 15:33
[2017-04-29] MEDS: Total Parenteral Nutrition 1 BAG IV SCH (21:33)
[2017-04-30] VITALS (9 sets, daily range): BP systolic 154–175; BP diastolic 65–86; PULSE 90–102; RESP 14–20; O2SAT 96–100
[2017-04-30] MEDS: fentaNYL 2 mCg/mL-Bupiv 0.125% 100 ML in IV Premix 1 EACH EPIDURAL SCH ×2 (00:25→09:03)
[2017-04-30] MEDS: D5 0.45% NaCl + KCl 20 mEq/L 1,000 ML IV SCH ×2 (04:25→14:07)
--- NOTE | 2017-04-30 05:02 | NUR ---
TPN/Pain Pt reports pain 4/10, states epidural med is effective with bolus', becomes 2/10. Epidural is infusing at 10ml/hr continuous with 4ml bolus's every 20 min. Pt started TPN this shift, tolerating well, no NV reported. Care continues
[2017-04-30 06:23] LABS: Magnesium 1.8 mg/dL (1.6-2.6); Phosphorus 1.7 mg/dL (2.5-4.9)
[2017-04-30] MEDS ORDERED: Potassium Phos (mEq) Inj 40 MEQ in Dextrose 5% 500 ML IV ONE (07:55)
[2017-04-30] MEDS: Pantoprazole 4 mg/mL 10 mL Inj IVPUSH SCH (08:19)
--- NOTE | 2017-04-30 08:45 | PCM.PNSURG ---
Subjective Visit Information: Reason for Visit Gastric Outlet Obstruction Surgery/Surgery Date Post-Op Day # Date of Admission: Apr 27, 2017 at 04:15 Hospital Day # Subjective: Stable overnight. No flatus or bowel movement. No nausea or vomiting. Mild tachycardia to 102. Mild hypertension. Maximum temperature 37.6. Objective Vital Sign- Last 8 Hours Date Time Temp Pulse Resp B/P Pulse Ox O2 Delivery O2 Flow Rate FiO2 04/30/17 06:23 37.1 102 14 154/85 99 Room Air 04/30/17 06:00 16 99 04/30/17 04:00 18 99 04/30/17 02:45 14 99 04/30/17 01:51 37.6 92 175/65 98 Room Air Intake and Output- Last 8 Hour 04/30/17 Cumulative From/Thru 07:00 04/21/17 12:10 - 04/30/17 06:56 Intake Total 1393 ml 8094 ml Output Total 1300 ml 7657 ml Balance 93 ml 437 ml Intake Oral 100 ml IV Total 855 ml 7456 ml TPN/PPN 538 ml 538 ml Output Urine Total 1300 ml 6635 ml Gastric Drainage Total 800 ml Drainage Total 122 ml Estimated Blood Loss 100 ml # Bowel Movements 0 General: Alert, Oriented X3, Cooperative, No Acute Distress Abdomen: Soft, Appropriately tender, Non-distended, Other (MARI drain with serosanguineous fluid) Result Diagram: 04/29/17 0640 04/30/17 0540 Assessment & Plan Impression 49-year-old woman status post distal gastrectomy with Billroth I anastomosis. She did not have emptying on her upper GI study. She has not extrinsic nausea or vomiting and does not have NG tube. She is not passing gas or having bowel movements yet. She is on TPN. Problems: Plan Continue TPN Continue maintenance IV fluids Continue NPO status AROBF IV tylenol Continue MARI drain The patient's course was discussed with Dr. Inman who would like to wait until she has radiographic signs of stomach emptying prior to beginning a diet. Mitzy Donahue MD Apr 30, 2017 08:45
[2017-04-30] MEDS: Acetaminophen IV 1,000 MG in IV Premix 1 EACH IV PRN ×2 (09:15→22:21)
--- NOTE | 2017-04-30 12:39 | PCM.PHAPRO ---
Progress -Ran Kphos 40meq rider to supplement phos. PARENTERAL NUTRITION ORDERS 2 - Standard Hang Time: 2100 Substrates Total kcal: 1122 AMINO ACIDS 65 g DEXTROSE 180 g Total Volume (mL): 1750 LIPIDS 25 g Sterile Water for Injection mL To Infuse Over (hrs): 24 Total Volume 1750 mL At at a rate of (mL/hr): 73 Additives Sodium Chloride 70 mEq "typical" daily requirements Sodium Acetate 10 mEq Sodium 50-120mEq Potassium Chloride 0 mEq Potassium 60-120mEq Potassium Phosphate 40 mEq Phosphate 20-40mEq Calcium Gluconate mEq Magnesium 8-32mEq Magnesium Sulfate 4 mEq Calcium 9-22mEq Acetate* 80-120mEq Chloride* 80-120mEq Regular Insulin 0 units *Depending on acid-base status Famotidine 0 mg Multivitamins 1 std dose Insulin Regimen Trace Elements 1 std dose none Thiamine 100 mg Regular Low Intensity Subcut Folic Acid 1 mg Regular Medium Intensity Subcut Ascorbic Acid mg Regular High Intensity Subcut Regular Insulin Infusion Other: Special Instructions: To be infused via central line only. For delay or inturruption of TPN contact the pharmacist for alternative replacement solution. Signature Date: Irish De La Cruz [address] [facility] Eric Connelly Pharm.D Apr 30, 2017 12:39
[2017-04-30] MEDS ORDERED: Morphine PCA 1 mg/mL 30 mL Inj IV PRN (13:35)
--- NOTE | 2017-04-30 15:43 | NUR ---
Social Work: Continued Discharge Planning/Multidisciplinary Rounds D: EMR reviewed. Pt is on day 3 of hospitalization. Pt discussed in multidisciplinary rounds. Per MD, pt is not medically stable for discharge - anticipate 2-3 more days, pending Ortho. No SW needs identified at this time. No MD orders received. SW will continue to follow for needs during hospital stay. Pt has a supportive friend Rian [phone] who will provide transport home via POV when pt is medically stable for discharge. SW provided pt with discharge planning checklist and encouraged pt to call with any questions, Phone number placed on white board. Pt currently has an NG Tube in place. SW to follow for needs. A:Pt who is independent at baseline and has capacity for self-care. P: Anticipate pt to discharge home with friend via POV when medically stable. SW to follow for needs/MD orders. LORA Fan
--- NOTE | 2017-04-30 18:56 | NUR ---
Patient has been passing gas this shift, no bowel movement as of yet. Addendum: 04/30/17 at 1857 by ADELINE PANIAGUA CNA Amended: Links added.
--- NOTE | 2017-04-30 20:15 | NUR ---
Pain/ gastric Patient with pain 3-5/10 to abdomen related to surgical incision. Patient had epidural that migrated outward so removed today and started on marker shipments morphine for pain control. Patient states morphine working fair enough. Patient up to bedside commode some flatus passed but no bowel movement.
[2017-04-30] MEDS: TPN Per Pharmacist XX SCH (21:00)
[2017-04-30] MEDS: Total Parenteral Nutrition 1 BAG IV SCH (22:08)
[2017-05-01] VITALS (7 sets, daily range): BP systolic 142–150; BP diastolic 71–83; PULSE 72–92; RESP 16–20; O2SAT 97–100
[2017-05-01] MEDS: D5 0.45% NaCl + KCl 20 mEq/L 1,000 ML IV SCH ×3 (00:25→22:24)
[2017-05-01 06:22] LABS: Magnesium 1.7 mg/dL (1.6-2.6)
[2017-05-01] MEDS: Ampicillin Inj 2,000 MG in 0.9% Sodium Chloride 100 ML IV SCH ×3 (07:17→20:05)
[2017-05-01] MEDS: metroNIDAZOLE Inj 500 MG in IV Premix 1 EACH IV SCH ×4 (07:18→23:00)
[2017-05-01 09:12] LABS: Mean Corpuscular Hemoglobin 30.2 pg (27.0-35.0); Mean Corpuscular Volume 89.3 fL (81-100)
--- NOTE | 2017-05-01 09:44 | PCM.PNSURG ---
Subjective Visit Information: Reason for Visit Gastric Outlet Obstruction Surgery/Surgery Date Post-Op Day # Date of Admission: Apr 27, 2017 at 04:15 Hospital Day # Subjective: Stable overnight. She started passing gas and had 3 bowel movements. She is not hungry. She is still on TPN. 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 Hematocrit is 31.6, leukocytosis has normalized. Copious urine output, greater than 3 L. Minimal serosanguineous output from the MARI drain. Objective Vital Sign- Last 8 Hours Date Time Temp Pulse Resp B/P Pulse Ox O2 Delivery O2 Flow Rate FiO2 05/01/17 06:34 36.8 72 18 144/83 100 Room Air Intake and Output- Last 8 Hour 05/01/17 Cumulative From/Thru 07:00 04/21/17 12:10 - 05/01/17 06:38 Intake Total 1825 ml 45342 ml Output Total 1405 ml 58496 ml Balance 420 ml -117 ml Intake Oral 0 ml 100 ml IV Total 1061 ml 8824 ml TPN/PPN 764 ml 2281 ml Output Urine Total 1400 ml 58851 ml Gastric Drainage Total 800 ml Drainage Total 5 ml 137 ml Estimated Blood Loss 100 ml # Voids 4 4 # Bowel Movements 0 0 General: Alert, Oriented X3, Cooperative, No Acute Distress Abdomen: Soft, Appropriately tender, Other (MARI drain with trace serosanguineous output.) Result Diagram: 05/01/17 0845 05/01/17 0545 Assessment & Plan Impression 67-year-old woman status post distal gastrectomy with Billroth I anastomosis. Problems: Plan She is doing well today and has multiple signs of good recovery from surgery. Continue TPN. I will order a Gastrografin study to assess emptying from the stomach into the duodenum. Continue ambulation. Per Dr. Inman, path revealed severe H. Pylori and antibiotics were ordered for this. I will add a PPI today. Mitzy Donahue MD May 01, 2017 09:44
--- NOTE | 2017-05-01 10:14 | PCM.PHAPRO ---
Progress PARENTERAL NUTRITION ORDERS 3 - Standard Hang Time: 2100 Substrates Total kcal: 1122 AMINO ACIDS 65 g DEXTROSE 180 g Total Volume (mL): 1750 LIPIDS 25 g Sterile Water for Injection mL To Infuse Over (hrs): 24 Total Volume 1750 mL At at a rate of (mL/hr): 73 Additives Sodium Chloride 70 mEq "typical" daily requirements Sodium Acetate 10 mEq Sodium 50-120mEq Potassium Chloride 20 mEq Potassium 60-120mEq Potassium Phosphate 40 mEq Phosphate 20-40mEq Calcium Gluconate mEq Magnesium 8-32mEq Magnesium Sulfate 4 mEq Calcium 9-22mEq Acetate* 80-120mEq Chloride* 80-120mEq Regular Insulin 0 units *Depending on acid-base status Famotidine 0 mg Multivitamins 1 std dose Insulin Regimen Trace Elements 1 std dose none Thiamine 100 mg Regular Low Intensity Subcut Folic Acid 1 mg Regular Medium Intensity Subcut Ascorbic Acid mg Regular High Intensity Subcut Regular Insulin Infusion Other: Special Instructions: To be infused via central line only. For delay or inturruption of TPN contact the pharmacist for alternative replacement solution. Signature Date: Irish De La Cruz [address] [facility] Eric Connelly Pharm.D May 01, 2017 10:14
[2017-05-01] MEDS: Pantoprazole 4 mg/mL 10 mL Inj IVPUSH SCH ×2 (10:47→21:34)
--- NOTE | 2017-05-01 12:35 | DRSVH ---
PROCEDURE: X-RAY GASTROGRAFIN CHALLENGE, 1 VIEW ABDOMEN INDICATIONS: 67 year-old female; assess gastric emptying into the duodenum. TECHNIQUE: One view of the abdomen acquired, one hour after the administration of oral Gastrografin. COMPARISON: [facility], CR, XR ABD AP 1VW, 04/29/2017, 6:00. [facility], CR, XR UPPER GI GASTROGRAFIN, 04/28/2017, 13:46. [facility], CR, XR ABD AP 1VW, 04/27/2017, 8 :31. FINDINGS: Surgical changes and devices: Right mid abdominal surgical drain is again noted. Bowel: Bowel gas pattern is normal, with transit of Gastrografin contrast into multiple nondistended mid and proximal small bowel loops. There is residual dependent contrast within the gastric fundus a s well. Soft tissues: No suspicious abdominal calcifications. Visualized solid organ contours appear normal in size. Bones: No suspicious bony lesions. There is lumbar spine disc degeneration. IMPRESSION: Transit of oral contrast into nondistended small bowel loops from the gastric lumen by on e hour after contrast ingestion. Dictated by: Guillermo Ruvalcaba M.D. on 05/01/2017 at 12:31 Approved by: Guillermo Ruvalcaba M.D. on 05/01/2017 at 12:33
[2017-05-01] MEDS: Acetaminophen IV 1,000 MG in IV Premix 1 EACH IV PRN ×2 (16:19→22:06)
--- NOTE | 2017-05-01 20:03 | NUR ---
Pain / testing Patient rates pain 3-4/10 to abdomen. Patient using griddle cook Morphine small a,tarun and requested Tylenol to help with headache and pain. Patient had gastrograffin test today tolerated well. patient is having some liquid stools.
[2017-05-01] MEDS: TPN Per Pharmacist XX SCH (21:00)
[2017-05-01] MEDS: Total Parenteral Nutrition 1 BAG IV SCH (22:24)
[2017-05-02] VITALS (7 sets, daily range): BP systolic 140–165; BP diastolic 72–82; PULSE 78–89; RESP 16–20; O2SAT 98–100
[2017-05-02] MEDS: Ampicillin Inj 2,000 MG in 0.9% Sodium Chloride 100 ML IV SCH ×3 (01:11→11:34)
[2017-05-02] MEDS: Acetaminophen IV 1,000 MG in IV Premix 1 EACH IV PRN (04:06)
[2017-05-02] MEDS: metroNIDAZOLE Inj 500 MG in IV Premix 1 EACH IV SCH (04:33)
[2017-05-02 04:55] LABS: Magnesium 1.7 mg/dL (1.6-2.6); Phosphorus 2.9 mg/dL (2.5-4.9)
--- NOTE | 2017-05-02 05:17 | NUR ---
Pain Pain adequately controlled with IV Tylenol and PREHEMMER Morphine. Denies nausea, remains NPO; loose stool since gastrograffin study, active bowel tones. TPN infusing as well as IV fluids and intermittent antibiotics. Able to transfer self safely to [facility]. Hourly rounding ongoing.
[2017-05-02] MEDS ORDERED: Pantoprazole 4 mg/mL 10 mL Inj IVPUSH SCH (07:30)
--- NOTE | 2017-05-02 08:22 | PCM.PNSURG ---
Subjective Date of Service: May 02, 2017 Visit Information: Gastric Outlet Obstruction from Chronically perforated ulcer with H pylori s/p Distal Gastrectomy with Gastroduodenostomy Post-Op Day # 5 Date of Admission: Apr 27, 2017 at 04:15 Hospital Day # 7 Subjective: Feeling well, Passing stool, Pain controlled mostly with tylenol Objective Vital Sign- Last 8 Hours Date Time Temp Pulse Resp B/P Pulse Ox O2 Delivery O2 Flow Rate FiO2 05/02/17 06:20 36.7 89 20 165/72 99 Room Air 05/02/17 06:00 16 99 05/02/17 00:30 16 98 Intake and Output- Last 8 Hour 05/02/17 Cumulative From/Thru 06:59 04/21/17 12:10 - 05/02/17 06:31 Intake Total 2260 ml 40817 ml Output Total 19078 ml Balance 2260 ml 2361 ml Intake Oral 100 ml IV Total 1486 ml 78026 ml TPN/PPN 774 ml 3837 ml Output Urine Total 06068 ml Stool Total 300 ml Gastric Drainage Total 800 ml Drainage Total 147 ml Estimated Blood Loss 100 ml # Voids 4 # Bowel Movements 3 Abdomen: Soft, Other (Incision C/D/I) Result Diagram: 05/01/17 0845 05/02/17 0430 Assessment & Plan Impression Doing well Problems: Plan Full liquid diet Wean to DC TPN DC MARI Ambulate Incentive spirometry Will Convert medications to PO if tolerating well later today May Discharge home tomorrow if continues to do well Hever Inman MD May 02, 2017 08:22
[2017-05-02] MEDS: Pantoprazole 4 mg/mL 10 mL Inj IVPUSH SCH (08:51)
--- NOTE | 2017-05-02 14:02 | NUR ---
Drain/Pain/PO DC'd patients MARI drain this AM. Removed one stitch and tube pulled out with light pull. Placed folded dry gauze over site and secured it with tagaderm. Patient tolerated this well. Does report discomfort on right side of her abdomen since drain DC. At this time, there is no drainage from site. Patient has been tolerating a full liquid diet for breakfast and lunch. Denies nausea and an increase in stomach discomfort. PO medications ordered instead of IV. She has been tolerating PO tylenol without issue. Talked with surgeon about how he would like to decrease TPN and he stated that it should be decreased to half the rate and then completely stopped tonight. Pain has been scored at a 3-4/10 most of this AM. VIDEO MANAGER was DC'd. Surgeon was contacted about getting a PRN narcotic since there was only tylenol for pain in the eMAR and an order was placed. 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 Made a plan with the patient about pain management and she received a dose of morphine before discontinuing the pump and PO tylenol for her pain. Upon reassessment, patient reports a pain level at "less than 2". Continuing to monitor patient's pain level and assess for pain management needs. Also assessing for any nausea, vomiting, or abdominal discomfort. TPN has been decreased to half the rate it was this AM and per Jaime Inman MD, and continuing to check patient's blood glucose levels.
--- NOTE | 2017-05-02 14:10 | NUR ---
NUTRITION FOLLOW-UP: ASSESS: 67 YO female admitted with gastric and duodenal obstruction from chronically perforated ulcers; status post distal gastrectomy with gastroduodenostomy (Billroth I reconstruction). She continues to have NGT in place. Pt was started on TPN 04/29, TPN currently discontinued and diet advanced with positive bowel tones/multiple BM's. Pt with good po intake on full liquid diet. PMHx: Diastolic murmur, HTN, gastric outlet obstruction. DIET: Full Liquid. PO 75% x 1 meal LABS: Reviewed. Alb 3.1, Glu 120 MEDICATIONS: Reviewed. GI symptoms / stool: 5 BM 05/02 Skin Integrity: No issues reported. ANTHROPOMETRICS: Current Wt: 78.8 kg BMI: 27.2 kg/m2, admit wt 82.8kg IBW: 61.4 kg ESTIMATED NEEDS (GI SURGERY): Calories: 2749-8537 kcal (25 - 30 kcal / kg BW) Protein: 100-125 g protein (1.2 - 1.5 g / kg BW) Fluids: ~2050ml/day (25ml/kg) NUTRITION DIAGNOSIS: 1) Increased nutrient needs related to increased needs for healing as evidence by GI surgery and need for TPN-PERSISTS 2) Inadequate oral intake related to inability to consume sufficient energy, as evidenced by ongoing NPO status--IMPROVING. Diet advancing with good po intake. INTERVENTION: 1) Supplements added to meals. MONITOR/EVALUATE: iet advance / tolerance, GI/nutrition status. Follow up per moderate nutrition risk guidelines.
--- NOTE | 2017-05-02 15:16 | NUR ---
ENERGY PROJECTS LEAD witnessed [facility] Signature KIANA PulidoSW
[2017-05-02] MEDS: Pantoprazole 40 mg ER24 Tablet PO SCH (16:36)
--- NOTE | 2017-05-03 05:40 | NUR ---
Pain / Diet Pain well controlled with prn Tylenol and one time dose of oxycodone. Tolerating diet without increase in nausea, TPN discontinued. BG have been WNL. Able to safely ambulate in room, encouraged to consider longer walk in am. Hourly rounding ongoing.
[2017-05-03 06:18] VITALS: BP 147/79; PULSE 94; RESP 18; O2SAT 96
[2017-05-03] MEDS: Pantoprazole 40 mg ER24 Tablet PO SCH (07:15)
[2017-05-03] MEDS ORDERED: PANT40TA3 PO (07:52)
[2017-05-03] MEDS ORDERED: AMOX500T2 PO (07:52)
[2017-05-03] MEDS ORDERED: OXYC5TAB72 PO (07:52)
[2017-05-03] MEDS ORDERED: CLAR500T PO (07:52)
[2017-05-03] MEDS ORDERED: POLY17PO6 PO (07:52)
--- NOTE | 2017-05-03 07:55 | PCM.DISURG ---
Surgical Discharge Instruction Date of Service May 03, 2017 Dates of Hospitalization Date of Hospital Admission Apr 27, 2017 at 04:15 Providers Admitting Physician: Hever Inman MD Primary Care Physician: David Calloway MD Attending Physician: Hever Inman MD Discharge Diagnosis Discharge Diagnosis Chronically perforated gastric & duodenal ulcers from Helicobacter pylori with Gastric Outlet obstruction Post Operative diagnosis Operation: Distal Gastrectomy with Gastroduodenostomy (Bilroth I Reconstruction) Diet Discharge Diet: Other (Full liquid diet for 1 more week, gradually introduce solids after that) Activity Discharge Activity-General: No lifting >10 pounds for 4-6 weeks Dressing and Incisional Care Dressing Care: Other (Steristrips to fall off in a week) Hygiene: May shower, DO NOT soak incision under water Follow Up Plan Follow-up Provider (F9): Hever Inman MD Follow-up appointment: Weeks (2) Call your provider for: Fever, Chills, Shortness of breath, Increasing abdominal pain, Nausea, Vomiting, Wound redness, Increasing wound pain, Warmth to touch, Discharge @ incision, pus discharge Hever Inman MD May 03, 2017 07:55
--- NOTE | 2017-05-03 07:59 | PCM.PNSURG ---
Subjective Date of Service: May 03, 2017 Visit Information: Gastric Outlet Obstruction from Chronically perforated ulcer with H pylori s/p Distal Gastrectomy with Gastroduodenostomy Post-Op Day # 6 Date of Admission: Apr 27, 2017 at 04:15 Hospital Day # 8 Subjective: Feeling well, Passing stool, Tolerating a diet Objective Vital Sign- Last 8 Hours Date Time Temp Pulse Resp B/P Pulse Ox O2 Delivery O2 Flow Rate FiO2 05/03/17 06:18 36.7 94 18 147/79 96 Room Air Intake and Output- Last 8 Hour 05/03/17 Cumulative From/Thru 07:00 04/21/17 12:10 - 05/03/17 06:18 Intake Total 450 ml 36023 ml Output Total 1600 ml 04110 ml Balance -1150 ml 854 ml Intake Oral 450 ml 1928 ml IV Total 79955 ml TPN/PPN 4594 ml Output Urine Total 1600 ml 25034 ml Stool Total 900 ml Urine/Stool Mix 1250 ml Gastric Drainage Total 800 ml Drainage Total 147 ml Estimated Blood Loss 100 ml # Voids 4 # Bowel Movements 1 12 Abdomen: Soft, Non-tender Result Diagram: 05/01/17 0845 05/02/17 0430 Assessment & Plan Impression Doing well Problems: Plan Full liquid diet for a week prior to introduction of solids Ambulate Incentive spirometry Oral H pylori eradication therapy for 2 weeks Home today Hever Inman MD May 03, 2017 07:59
[2017-05-03] MEDS ORDERED: Polyethylene Glycol (PEG) 17 Gm Powder PO SCH (08:30)
[2017-05-03 08:47] VITALS: BP 149/78; PULSE 85; RESP 18; O2SAT 100
--- NOTE | 2017-05-03 11:25 | NUR ---
Social Work- Discharge Data: EMR reviewed. Pt is on day 6 of hospitalization for gastric outlet obstruction. Pt discussed in rounds, pt is medically ready for d/c at this time. No discharge needs identified in rounds. Pt is independent at baseline. Pt to d/c home with her friend to transport via POV. Assessment: Pt who is independent at baseline Plan: Pt to d/c home with her friend to transport via POV. No discharge needs identified. Shamika Duran MSW
--- NOTE | 2017-05-03 12:29 | NUR ---
Discharge Patient discharged home with friend via wheelchair to personal vehicle. Discharge information given and gone over with patient including new medication prescriptions, follow up appointments, and informational packets. IV therapy called to DC double lumen PICC line and after waiting 15 minutes, patient got dressed independently and used call light for assistance out. Talked with the patient about her activity restrictions including not lifting over 10 pounds for 4-6 weeks, keeping a full liquid diet and then slowly advancing, and would care instructions. Patient showed verbal understanding of all discharge information.
--- NOTE | 2017-05-03 13:32 | PCM.DC.SUR ---
Discharge Summary Date of Service: May 03, 2017 Date of Hospital Admission: Apr 27, 2017 at 04:15 Date of Operation(s): 04/27/17 Date of Discharge: 05/03/17 Diagnosis at Time of Discharge Primary Diagnoses: 1. Chronically perforated gastric & duodenal ulcers from Helicobacter pylori with Gastric Outlet obstruction 2. Status post Distal Gastrectomy with Gastroduodenostomy (Bilroth I Reconstruction) Other Medical & Surgical History 1. Hypertension 2. Peptic ulcer disease empirically managed with acid suppressive medication over 10 years ago: 3. Status post right knee replacement in 2007 4. Status post right foot surgery in 2009 5. Status post tonsillectomy in 1962 Problems: Operation Distal Gastrectomy with Gastroduodenostomy (Bilroth I Reconstruction) Brief History and Physical: Irish De La Cruz is a 67-year-old lady who started developing epigastric discomfort after eating a big meal over a year ago. She also has been throwing up undigested food after a few hours. When she initially tried some omeprazole, it seemed to help, but not after the first few months. As long as she was eating small meals, she seemed to manage. After she discussed the symptoms with Dr. Calloway on 12/14/2016, she requested an upper GI and sent her for consultation with gastroenterology. Dr. Boyd sent her to Dr. Inman after an upper endoscopy and CT scan. She is able to nutritionally manage for the moment with liquid diet and protein shakes. She has not noticed any jaundice, discolored stools, itching. She has never had an abdominal operation. She has lost 50 pounds over the last year or so, but part of it has been intentional. Dr. Inman met her on 03/24/2017 and requested some blood work and a pancreas protocol CT scan. She is back today to discuss the findings and for operative planning. Consultants: Dr. Boyd Hospital Course: The patient was admitted with a history, presentation, and work-up consistent with the above diagnosis and underwent the above mentioned surgical procedure without complication. See operative report for more details. After surgery the patient convalesced appropriately. The post surgical hospital course was as expected. Including but not limited to eventually discontinuing the nasogastric tube along with total parental nutrition, after exhibiting radiographic signs of stomach emptying, prior to beginning and tolerating a more normal liquid diet and oral medication, while showing more positive signs of a return to bowel function, including passing stool and flatus before discharge; with verbalized understanding of specific post operative care, diet, follow-up and medication instructions; as well as when to seek immediate medical attention. The patient was discharged by Dr. Inman on post operative day # 6 feeling well in stable condition. Pathology: See pathology report Disposition: Home in stable condition Follow-up Plan: [facility] in 2 weeks. Acetaminophen/Diphenhydramine (Tylenol Pm Ex-Strength Caplet) 500 Mg-25 Mg Tablet 1 EACH PO (Reported) Amoxicillin (Amoxicillin) 500 Mg Tablet 1,000 MG PO BID Ascorbate Calcium (Vitamin C) 500 Mg Tablet 500 MG PO DAILY (Reported) Clarithromycin (Clarithromycin) 500 Mg Tablet 500 MG PO BID Gelatin (Gelatin) 650 Mg Capsule 650 MG PO DAILY (Reported) Hydrochlorothiazide (Hydrochlorothiazide) 25 Mg Tablet 25 MG PO DAILY (Reported ) Losartan Potassium (Losartan Potassium) 50 Mg Tablet 50 MG PO DAILY (Reported) Multivitamin (Multi Vitamin Daily) 1 Each Tablet 1 EACH PO DAILY (Reported) Pantoprazole DR (Pantoprazole DR) 40 Mg Tablet.dr 40 MG PO BIDAC Polyethylene Glycol 3350 (Miralax) 17 Gm Powd.pack 17 GM PO DAILY Tramadol (Tramadol) 50 Mg Tablet 50 MG PO Q4H PRN PRN For Pain (Reported) oxyCODONE (oxyCODONE) 5 Mg Tablet 5 MG PO Q4H PRN PRN For Moderate Pain Discharge Medications: See above. copies to: Abelino Boyd MD; David Calloway MD, Scott PA-C May 03, 2017 13:32
[2020-04-27] MEDS ORDERED: Rocuronium 10 mg/mL 5 mL Inj ONE (04:16)
[2020-04-27] MEDS ORDERED: Dexamethasone 4 mg/mL Inj ONE (04:16)
[2020-04-27] MEDS ORDERED: Propofol 10,000 mCg/mL 20 mL Inj ONE (04:16)
[2020-04-27] MEDS ORDERED: Glycopyrrolate 0.2 MG/ML 1mL Inj ONE (04:16)
[2020-04-27] MEDS ORDERED: fentaNYL-PF 50 mCg/mL 2 mL Inj ONE (04:16)
[2020-04-27] MEDS ORDERED: Ondansetron 2 mg/mL 2 mL Inj ONE (04:16)
[2020-04-27] MEDS ORDERED: Phenylephrine/NS 100 mCg/mL 10 mL Syringe IVPUSH ONE (04:16)
[2020-04-27] MEDS ORDERED: EPHEDrine/NS 5 mg/mL 5 mL Syringe ONE (04:16)
[2020-04-27] MEDS ORDERED: Neostigmine 1 mg/mL 10 mL Inj ONE (04:16)
== END 2017-05-03 12:10 | disposition home or self-care (01) | DRG 326 ==
LOC: SAS 10:29 → MPC 04-27 04:15 → OSC 04-28 10:12
PROVIDERS: ADMIT Student in an Organized Health Care Education/Training Program; ATTEND Student in an Organized Health Care Education/Training Program
PROC: 0D160Z9 Bypass Stomach to Duodenum, Open Approach (ICD-10-PCS; 2017-04-26)
PROC: 0WQF0ZZ Repair Abdominal Wall, Open Approach (ICD-10-PCS; 2017-04-26)
PROC: 07BD0ZX Excision of Aortic Lymphatic, Open Approach, Diagnostic (ICD-10-PCS; 2017-04-26)
PROC: 0DB60ZZ Excision of Stomach, Open Approach (ICD-10-PCS; principal; 2017-04-26 12:15)
PROC: 0DT70ZZ Resection of Stomach, Pylorus, Open Approach (ICD-10-PCS; 2017-04-26 12:15)
DX: K31.1 Adult hypertrophic pyloric stenosis (principal); K25.5 Chronic or unspecified gastric ulcer with perforation; K26.5 Chronic or unspecified duodenal ulcer with perforation; K42.9 Umbilical hernia without obstruction or gangrene; I10 Essential (primary) hypertension; B96.81 Helicobacter pylori [H. pylori] as the cause of diseases classified elsewhere